=== PATIENT | male | born 1985 | race Caucasian/White ===

== ENCOUNTER 2018-07-07 07:49 | Emergency (ER) | payer SELFPAY ==
[~2018-07-07] VITALS: Ht 185.4 cm; Wt 95.3 kg
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
--- NOTE | 2018-07-07 07:52 | NUR ---
DR ARCHULETA AT BEDSIDE
[2018-07-07] MEDS ORDERED: IBUPROFEN 400 MG TABLET ONE (07:59)
[2018-07-07] MEDS ORDERED: IBUPROFEN 400 MG TABLET PO ONE (08:00)
--- NOTE | 2018-07-07 08:10 | NUR ---
SURGERY ASSISTANT AT BEDSIDE
--- NOTE | 2018-07-07 09:06 | NUR ---
Patient discharged to home in stable condition. Written and verbal after care instructions given. Patient verbalizes understanding of instruction.
[2018-07-07 09:07] VITALS: BP 149/78
== END 2018-07-07 09:07 | disposition home or self-care (01) ==
LOC: ER 07:51
DX: S70.01XA Contusion of right hip, initial encounter (principal); V49.49XA Driver injured in collision with other motor vehicles in traffic accident, initial encounter; Y93.89 Activity, other specified; Y92.413 State road as the place of occurrence of the external cause; Y99.8 Other external cause status
CPT/HCPCS: 73502

== ENCOUNTER 2019-06-21 18:45 | Emergency (ER) | payer SELFPAY ==
[~2019-06-21] VITALS: Ht 185.4 cm; Wt 93.0 kg
--- NOTE | 2019-06-21 19:00 | NUR ---
PT AMBULATORY TO ER BED 04 C/O DIFFICULTY SWALLOWING FOR THE PAST 3 MONTHS NOW. PT STATES GOT WORST TODAY AND WAS CONCERN ABOUT HIM NOT ABLE TO BREATH. PT WAS GIVEN MEDICATION FOR GERD YESTERAY AT A DIFFERENT HOSPITAL. NO RESPIRATORY DISTRESS NOTED. AWAITING MD BLACKMAN.
--- NOTE | 2019-06-21 19:18 | NUR ---
DR ARGUETA AT BEDSIDE FOR EVAL.
--- NOTE | 2019-06-21 19:20 | NUR ---
REPORT TO RECREATIONAL COUNSELOR NURSE CAMPBELL BEARD FOR [facility].
--- NOTE | 2019-06-21 19:37 | NUR ---
pt refused to proceed w/ blood work and CT scan. Pt spoke to Dr. Ortega personally. He is going to see an ENT instead.
--- NOTE | 2019-06-21 19:45 | NUR ---
PT IS MEDICALLY CLEAR FOR D/C , Patient discharged to home in stable condition. Written and verbal after care instructions given. Patient verbalizes understanding of instruction.
[2019-06-21 20:00] VITALS: BP 143/88
== END 2019-06-21 19:45 | disposition home or self-care (01) ==
LOC: ER 18:51
DX: R13.10 Dysphagia, unspecified (principal); K21.9 Gastro-esophageal reflux disease without esophagitis

== ENCOUNTER 2021-11-03 10:14 | Emergency (ER) | payer BC ==
[~2021-11-03] VITALS: Ht 185.4 cm; Wt 93.0 kg
--- NOTE | 2021-11-03 10:40 | NUR ---
DR KIMBALL AT BEDSIDE FOR EVAL
[2021-11-03] MEDS ORDERED: KETOROLAC TROMETHAMINE 15 MG/ML VIAL ONE (10:59)
[2021-11-03] MEDS ORDERED: methylPREDNISolone SOD SUCC 125 MG/2ML VIAL ONE (10:59)
[2021-11-03] MEDS ORDERED: diphenhydrAMINE HCL 50 MG/ML VIAL ONE (10:59)
[2021-11-03] MEDS ORDERED: diphenhydrAMINE HCL 50 MG/ML VIAL IV ONE (11:00)
[2021-11-03] MEDS ORDERED: KETOROLAC TROMETHAMINE INJ 30 MG/ML VIAL IV ONE (11:00)
[2021-11-03] MEDS ORDERED: BACI/NEOM/POLY B OINT PKT 1 UDPKT PACKET TP ONE (11:00)
[2021-11-03] MEDS ORDERED: TDAP [DIPH/PERTUSSIS/TET] 0.5 ML VIAL IM ONE ×2 (11:00)
[2021-11-03] MEDS ORDERED: FAMOTIDINE/PF INJ 20 MG/2 ML VIAL IV ONE ×2 (11:00)
[2021-11-03] MEDS ORDERED: methylPREDNISolone SOD SUCC 125 MG/2ML VIAL IV ONE (11:00)
[2021-11-03] MEDS ORDERED: IV NS 0.9% 1,000 ML BAG IV ONE (11:00)
--- NOTE | 2021-11-03 11:20 | NUR ---
IV LINE ESTABLISHED ON LAC #20.
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
[2021-11-03] MEDS ORDERED: FAMO-131 PO ×2 (12:06)
[2021-11-03] MEDS ORDERED: DIPH25CA83 PO ×2 (12:06)
[2021-11-03] MEDS ORDERED: PRED20TA PO ×2 (12:06)
[2021-11-03 12:28] VITALS: BP 122/80
== END 2021-11-03 12:28 | disposition home or self-care (01) ==
LOC: ER 10:32
DX: T23.201A Burn of second degree of right hand, unspecified site, initial encounter (principal); T78.40XA Allergy, unspecified, initial encounter; K21.9 Gastro-esophageal reflux disease without esophagitis; X10.2XXA Contact with fats and cooking oils, initial encounter; Y93.89 Activity, other specified; Y92.89 Other specified places as the place of occurrence of the external cause; Y99.8 Other external cause status
CPT/HCPCS: 99284; 96374; 96375; 96361; 90471; 16020; 90715; J1200; J3490; J2930; J7030; A6403; J1885